=== PATIENT | female | born 1975 | race Caucasian/White ===

== ENCOUNTER → 2020-11-16 | Outpatient (CLI) | payer MEDICARE, OTHER ==
[2020-11-16 10:45] LABS: HEMOGLOBIN 12.9 gm/dl (12.3-15.3); RED BLOOD COUNT 4.38 M/UL (4.00-5.10); WHITE BLOOD COUNT 8.3 K/UL (4.5-11.0)
[2020-11-17 09:14] LABS: CREATININE, URINE 131.5 mg/dL (Not Estab.)
== END ==
LOC: LAB 09:15
PROVIDERS: Nurse Practitioner Family
DX: E11.9 Type 2 diabetes mellitus without complications (principal); N18.30 Chronic kidney disease, stage 3 unspecified; E03.9 Hypothyroidism, unspecified; E55.9 Vitamin D deficiency, unspecified; Z79.899 Other long term (current) drug therapy
CPT/HCPCS: 36415; 80053; 80061; 82043; 82570; 83036; 84156; 84439; 84443; 85025; G0480

== ENCOUNTER → 2021-04-18 | Outpatient (CLI) | payer MEDICARE, OTHER | LOC: MAMO 13:58 | DX: Z12.31 Encounter for screening mammogram for malignant neoplasm of breast (principal) | CPT/HCPCS: 77063; 77067 ==

== ENCOUNTER → 2021-04-26 | Outpatient (CLI) | payer MEDICARE, OTHER | LOC: KOH-I 09:23 | DX: N28.89 Other specified disorders of kidney and ureter (principal); K80.20 Calculus of gallbladder without cholecystitis without obstruction; R19.02 Left upper quadrant abdominal swelling, mass and lump | CPT/HCPCS: 74176 ==

== ENCOUNTER → 2021-05-17 | Outpatient (CLI) | payer MEDICARE, OTHER | LOC: MRI 05-15 09:00 | PROVIDERS: Internal Medicine Nephrology | DX: Z01.818 Encounter for other preprocedural examination (principal); K66.8 Other specified disorders of peritoneum; N18.30 Chronic kidney disease, stage 3 unspecified; R16.0 Hepatomegaly, not elsewhere classified; K80.80 Other cholelithiasis without obstruction | CPT/HCPCS: 36415; 74183; 80053; 82570; 84156; A9577 ==

== ENCOUNTER → 2021-05-21 | Outpatient (CLI) | payer MEDICARE, OTHER | LOC: LBRF 14:27 | DX: K66.8 Other specified disorders of peritoneum (principal) | CPT/HCPCS: 83497 ==

== ENCOUNTER → 2021-06-14 | Day surgery (SDC) | payer MEDICARE, OTHER ==
[~2021-06-14] MED LIST: ABILIFY15 MG PO; ATORVASTATIN CA20 MG PO; BUSPIRONE HCL5 MG PO; DIVALPROEX SOD500 MG PO; FENOFIBRATE160 MG PO; GLUCOTROL 10 MG10 MG PO; HYDRALAZINE HCL50 MG PO; LABETALOL HCL300 MG PO; LEVEMIR FL100 UNIT/1 SQ; LEVOTHYROXINE75 MCG PO; OZEMPIC1 MG/0.71 SQ; VASOTEC 10 MG T10 MG PO; WELLBUTRIN SR150 M1 PO
== END | disposition home or self-care (01) ==
LOC: OR 07:29
DX: K31.9 Disease of stomach and duodenum, unspecified (principal); K29.70 Gastritis, unspecified, without bleeding; K80.20 Calculus of gallbladder without cholecystitis without obstruction; K76.0 Fatty (change of) liver, not elsewhere classified; E66.01 Morbid (severe) obesity due to excess calories; I10 Essential (primary) hypertension; E11.9 Type 2 diabetes mellitus without complications; E03.9 Hypothyroidism, unspecified; E78.00 Pure hypercholesterolemia, unspecified; Z79.4 Long term (current) use of insulin; Z79.84 Long term (current) use of oral hypoglycemic drugs; F32.A Depression, unspecified; Z68.41 Body mass index [BMI] 40.0-44.9, adult; Z20.822 Contact with and (suspected) exposure to COVID-19
CPT/HCPCS: 36415; 80076; 82962; J2704; J7040

== ENCOUNTER → 2021-06-21 | Day surgery (SDC) | payer MEDICARE, OTHER ==
[~2021-06-21] MED LIST changes: +CLARITIN 10MG T10 MG PO; +HUMALOG100 UNIT/2 SQ
== END | disposition home or self-care (01) ==
LOC: OR 09:25
DX: K80.20 Calculus of gallbladder without cholecystitis without obstruction (principal); E11.9 Type 2 diabetes mellitus without complications; K21.9 Gastro-esophageal reflux disease without esophagitis; E78.5 Hyperlipidemia, unspecified; I10 Essential (primary) hypertension; E03.9 Hypothyroidism, unspecified; F31.9 Bipolar disorder, unspecified; E66.01 Morbid (severe) obesity due to excess calories; Z68.41 Body mass index [BMI] 40.0-44.9, adult; Z79.4 Long term (current) use of insulin; Z79.899 Other long term (current) drug therapy
CPT/HCPCS: 82962; C1729; J0690; J1100; J1885; J2001; J2250; J2405; J2704; J2710; J3010; J7030; J7120

== ENCOUNTER → 2021-10-18 | Outpatient (CLI) | payer MEDICARE, OTHER | LOC: HEART CORB 08:45 | DX: R07.2 Precordial pain (principal); R06.02 Shortness of breath; I12.9 Hypertensive chronic kidney disease with stage 1 through stage 4 chronic kidney disease, or unspecified chronic kidney disease; E11.22 Type 2 diabetes mellitus with diabetic chronic kidney disease; N18.30 Chronic kidney disease, stage 3 unspecified; M51.36 Other intervertebral disc degeneration, lumbar region; M48.061 Spinal stenosis, lumbar region without neurogenic claudication; K80.20 Calculus of gallbladder without cholecystitis without obstruction; E78.5 Hyperlipidemia, unspecified; F41.9 Anxiety disorder, unspecified; F31.9 Bipolar disorder, unspecified; E55.9 Vitamin D deficiency, unspecified | CPT/HCPCS: 78452; A9502; J2785 ==

== ENCOUNTER 2022-01-15 21:30 | Emergency (ER) | payer MEDICARE, OTHER ==
[2022-01-15 22:24] LABS: HEMOGLOBIN 11.8 gm/dl (12.3-15.3); RED BLOOD COUNT 4.14 M/UL (4.00-5.10); WHITE BLOOD COUNT 11.4 K/UL (4.5-11.0)
[2022-01-16] MEDS ORDERED: OMNICEF 300 MG300 MG PO (06:04)
== END 2022-01-16 06:40 | disposition home or self-care (01) ==
LOC: ER1 21:30
PROVIDERS: Nurse Practitioner
DX: L03.211 Cellulitis of face (principal); E11.9 Type 2 diabetes mellitus without complications; I10 Essential (primary) hypertension; Z90.710 Acquired absence of both cervix and uterus; Z90.49 Acquired absence of other specified parts of digestive tract
CPT/HCPCS: 70487; 80053; 85025; 99284; J0696; Q9967